=== PATIENT | female | born 1970 ===

== ENCOUNTER 2016-10-12 21:11 | Emergency (ER) | payer MEDICAID ==
[2016-10-12 21:34] VITALS: RESP 16
--- NOTE | 2016-10-12 22:06 | ED PDOC ---
HPI: Female Pain Time Seen by Provider: 10/12/16 21:35 Chief Complaint (Nursing): Female Genitourinary Chief Complaint (Provider): Vaginal bleeding History Per: Patient History/Exam Limitations: no limitations Onset/Duration Of Symptoms: Intermittent Episodes Current Symptoms Are (Timing): Still Present Additional Complaint(s): Carolina is a 46 y/o female who presents to the ED complaining of intermittent vaginal bleeding associated with lower abdominal cramping, mostly left side, since July 2016. Seen by PMD and had ultrasound done early July, suggestive of cystic structure within endometrial canal. Could not correlate with Beta-HCG. Otherwise no past medical history. Patient states pelvic exam done by PMD with no acute findings. PMD: Dr. Worley Abnormal Vaginal Bleeding: Yes Past Medical History Reviewed: Historical Data, Nursing Documentation, Vital Signs Vital Signs: Last Vital Signs Temp 98.1 F 10/12/16 21:32 Pulse 70 10/12/16 21:32 Resp 16 10/12/16 21:32 BP 148/84 10/12/16 21:32 Pulse Ox 100 10/12/16 21:32 - Medical History PMH: Gastritis, HTN - Family History Family History: States: Unknown Family Hx - Home Medications Home Medications: Ambulatory Orders Medication Instructions Recorded No Known Home Med 08/28/15 - Allergies Allergies/Adverse Reactions: Allergies Allergy/AdvReac Type Severity Reaction Status Date / Time No Known Allergies Allergy Verified 08/28/15 09:50 Review of Systems ROS Statement: Except As Marked, All Systems Reviewed And Found Negative Gastrointestinal: Positive for: Abdominal Pain (lower abdominal cramping, left- sided) Genitourinary Female: Positive for: Vaginal Bleeding Physical Exam - Reviewed Nursing Documentation Reviewed: Yes Vital Signs Reviewed: Yes - Physical Exam Appears: Positive for: Non-toxic, No Acute Distress Head Exam: Positive for: ATRAUMATIC, NORMAL INSPECTION, NORMOCEPHALIC Skin: Positive for: Normal Color, Warm, Dry Eye Exam: Positive for: EOMI, Normal appearance, PERRL Neck: Positive for: Normal, Painless ROM, Supple Cardiovascular/Chest: Positive for: Regular Rate, Rhythm. Negative for: Murmur Respiratory: Positive for: Normal Breath Sounds. Negative for: Respiratory Distress Gastrointestinal/Abdominal: Positive for: Soft, Tenderness (mild tenderness to the left side) Back: Positive for: Normal Inspection. Negative for: L CVA Tenderness, R CVA Tenderness Extremity: Positive for: Normal ROM. 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 Discussed with pt need for followup to determine if this is malignancy or other lesion. Pt understands and will f/u with her Adjunct Instructor. Provider Scribe Attestation: All medical record entries made by the Scribe were at my direction and personally dictated by me. I have reviewed the chart and agree that the record accurately reflects my personal performance of the history, physical exam, medical decision making, and the department course for this patient. I have also personally directed, reviewed, and agree with the discharge instructions and disposition. 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
[2016-10-12 22:10] LABS: BASO % 0.3 % (0.0-2.0); EOS # 0.1 K/uL (0.0-0.7); EOS % 1.4 % (0.0-4.0); HEMATOCRIT 32.6 % (34.0-47.0); LYMPH # 2.3 K/uL (1.0-4.3); LYMPH % 34.2 % (20.0-40.0); MEAN CELL VOLUME 74.5 fl (81.0-99.0); MEAN CORPUSCULAR HEMOGLOBIN 24.2 pg (27.0-31.0); MEAN CORPUSCULAR HGB CONC 32.4 g/dL (33.0-37.0); MEAN PLATELET VOLUME 7.1 fl (7.2-11.7); MONO # 0.6 K/uL (0.0-0.8); MONO % 8.2 % (0.0-10.0); NEUT # 3.8 K/uL (1.8-7.0); NEUT % 55.9 % (50.0-75.0); NRBC % 0.1 % (0.0-0.0); RED CELL DISTRIBUTION WIDTH 21.5 % (11.5-14.5); WHITE BLOOD COUNT 6.8 K/uL (4.8-10.8)
[2016-10-12 22:21] LABS: ALB/GLOB RATIO 1.3 (1.0-2.1); ALKALINE PHOSPHATASE 45 U/L (38-126); ALT/SGPT 34 U/L (9-52); AST/SGOT 27 U/L (14-36); BILIRUBIN,TOTAL 1.2 mg/dl (0.2-1.3); BLOOD UREA NITROGEN 15 mg/dl (7-17); CALCIUM 8.9 mg/dL (8.4-10.2); CARBON DIOXIDE 24 mmol/L (22-30); GFR AFRICAN-AMERICAN > 60; GLUCOSE,RANDOM 96 mg/dL (65-105); POTASSIUM 3.9 MMOL/L (3.6-5.0); SODIUM 137 mmol/l (132-148); TOTAL PROTEIN 7.2 G/DL (6.3-8.2)
[2016-10-12 22:23] LABS: CHLORIDE 102 mmol/L (98-107)
[2016-10-13] VITALS: BP 125/80; PULSE 75; TEMP 97.9; O2SAT 99
--- NOTE | 2016-10-13 00:10 | US ---
EXAM: US Pelvis, Transvaginal EXAM DATE/TIME: 10/12/2016 10:10 PM CLINICAL HISTORY: 46 years old, female; Pain; Pelvic pain; Additional info: Llq pain TECHNIQUE: Real-time transvaginal pelvic ultrasound (complete) with image documentation. Transvaginal imaging was used for better evaluation of the endometrium and adnexa. COMPARISON: No relevant prior studies available. FINDINGS: The uterus measures 9 x 5 x 6 cm. The endometrium measures 9 mm. Along the posterior aspect of the endometrial canal is a complex cystic structure similar to prior measuring 1.7 x 1.2 x 0.9 cm. As discussed in prior report, possibilities would include atypical subserosal fibroid, endometrial polyp, products of conception. Correlation with beta-hCG and followup is recommended. The right ovary is normal. The left ovary is normal. Color flow and doppler vascular waveforms were demonstrated to both ovaries. There is no significant free fluid. IMPRESSION: Stable complex cystic structure along the posterior aspect of the endometrial canal as discussed above.
== END 2016-10-13 | disposition home or self-care (01) ==
LOC: H.ER 21:11
DX: N85.8 Other specified noninflammatory disorders of uterus (principal); I10 Essential (primary) hypertension

== ENCOUNTER 2017-11-14 13:22 | Emergency (ER) | payer MEDICAID ==
[2017-11-14 13:35] VITALS: RESP 16; O2SAT 100
--- NOTE | 2017-11-14 14:21 | ED PDOC ---
HPI: Abdomen Time Seen by Provider: 11/14/17 13:47 Chief Complaint (Nursing): Back Pain Chief Complaint (Provider): Right Flank and RUQ Pain History Per: Patient History/Exam Limitations: no limitations Onset/Duration Of Symptoms: Hrs (this morning) Current Symptoms Are (Timing): Still Present Additional Complaint(s): 47 year old female presents to the ED for evaluation of right sided flank pain radiating to her RUQ associated with nausea since waking up this morning. She reports her symptoms slightly resolved after drinking eleazar tea, but then felt nauseous again shortly after. Additionally, she states she had dysuria at the beginning of the week, but it has since been improving on its own. Otherwise denies vomiting, chest pain, shortness of breath, palpitations, hemoptysis, hx of DVT or PE, hx of kidney stones, leg pain, postprandial pain, and fever. PMD: [facility] Past Medical History Reviewed: Historical Data, Nursing Documentation, Vital Signs Vital Signs: Last Vital Signs Temp 98.5 F 11/14/17 13:32 Pulse 86 11/14/17 13:32 Resp 16 11/14/17 13:32 BP 131/85 11/14/17 13:32 Pulse Ox 100 11/14/17 13:32 - Medical History PMH: Gastritis, HTN - Surgical History Other surgeries: Yes: right knee, right foot - Family History Family History: States: Unknown Family Hx - Social History Current smoker - smoking cessation education provided: No Alcohol: Social Drugs: Denies - Home Medications Home Medications: Ambulatory Orders Medication Instructions Recorded RX: Naproxen [Naprosyn] 500 mg PO BID PRN #10 tab 11/14/17 - Allergies Allergies/Adverse Reactions: Allergies Allergy/AdvReac Type Severity Reaction Status Date / Time No Known Allergies Allergy Verified 11/14/17 13:30 Review of Systems ROS Statement: Except As Marked, All Systems Reviewed And Found Negative Constitutional: Negative for: Fever Cardiovascular: Negative for: Chest Pain, Palpitations Respiratory: Negative for: Shortness of Breath, Hemoptysis Gastrointestinal: Positive for: Nausea, Abdominal Pain (RUQ). Negative for: Vomiting, Other (postprandial pain) Genitourinary Female: Positive for: Dysuria Musculoskeletal: Positive for: Other (right flank pain). Negative for: Leg Pain Physical Exam - Reviewed Nursing Documentation Reviewed: Yes Vital Signs Reviewed: Yes - Physical Exam Appears: Positive for: No Acute Distress Head Exam: Positive for: ATRAUMATIC, NORMOCEPHALIC Skin: Positive for: Normal Color. Negative for: Rash Eye Exam: Positive for: Normal appearance, EOMI, PERRL Cardiovascular/Chest: Positive for: Regular Rate, Rhythm Respiratory: Positive for: Normal Breath Sounds. Negative for: Accessory Muscle Use, Respiratory Distress Gastrointestinal/Abdominal: Positive for: Normal Exam, Soft. Negative for: Tenderness, Other (Troy's sign) Back: Positive for: Normal Inspection. Negative for: L CVA Tenderness, R CVA Tenderness Neurologic/Psych: Positive for: Alert, Oriented (x3) - Laboratory Results Result Diagrams: 11/14/17 14:12 11/14/17 14:12 - ECG O2 Sat by Pulse Oximetry: 100 (RA) Pulse Ox Interpretation: Normal - Progress Re-evaluation Time: 15:58 (Reports complete relief of pain. RUQ US: negative. Informed of results and advised to f/u with [facility] for further evaluation but is to return to ED immediately if symptoms worsen. ) Condition: Re-examined, Improved Medical Decision Making Medical Decision Making: Time: 1357 Initial Impression: right flank / right upper quadrant pain Initial Plan: --CMP --Lipase --U-preg --U-dip --CBC with differential --Zofran 4mg IVP --Urinalysis --US gallbladder and pancreas Scribe Attestation: Documented by Deepti Jain, acting as a scribe for Brandyn Cuellar PA-C Provider Scribe Attestation: All medical record entries made by the Scribe were at my direction and personally dictated by me. I have reviewed the chart and agree that the record accurately reflects my personal performance of the history, physical exam, medical decision making, and the department course for this patient. I have also personally directed, reviewed, and agree with the discharge instructions and disposition. Disposition - Clinical Impression Clinical Impression: Flank pain - Patient ED Disposition Is Patient to be Admitted: No - Disposition Referrals: Koki Rae MD [Staff Provider] - Disposition: Routine/Home Disposition Time: 16:00 Condition: IMPROVED Additional Instructions: EARL CHAPMAN, thank you for letting us take care of you today. Your provider was Jennifer Abbasi MD and you were treated for RT SIDE PAIN. The emergency medical care you received today was directed at your acute symptoms. If you were prescribed any medication, please fill it and take as directed. It may take several days for your symptoms to resolve. Return to the Emergency Department if your symptoms worsen, do not improve, or if you have any other problems. Please contact your doctor or call one of the physicians/clinics you have been referred to that are listed on the Patient Visit Information form that is included in your discharge packet. Bring any paperwork you were given at discharge with you along with any medications you are taking to your follow up visit. Our treatment cannot replace ongoing medical care by a primary care provider outside of the emergency department. Thank you for allowing the [facility] team to be part of your care today. If you had an X-Ray or CT scan: A Radiologist will review the ED reading if any change in treatment is needed we will contact you. If you had a blood, urine, or wound culture: It will take several days for the results, if any change in treatment is needed we will contact you. If you had an STI test: It will take 48 hours for the results. Please call after 1 week if you have not heard back. Prescriptions: RX: Naproxen [Naprosyn] 500 mg PO BID PRN #10 tab PRN Reason: Pain Instructions: Flank Pain (DC) Forms: [employer] (Amharic)
[2017-11-14 14:23] LABS: BASO % 0.6 % (0.0-2.0); EOS % 0.7 % (0.0-4.0); HEMOGLOBIN 13.4 g/dL (12.0-16.0); LYMPH # 2.3 K/uL (1.0-4.3); LYMPH % 33.8 % (20.0-40.0); MEAN CELL VOLUME 85.9 fl (81.0-99.0); MEAN CORPUSCULAR HGB CONC 34.9 g/dL (33.0-37.0); MEAN PLATELET VOLUME 7.6 fl (7.2-11.7); MONO # 0.4 K/uL (0.0-0.8); MONO % 6.4 % (0.0-10.0); NEUT # 3.9 K/uL (1.8-7.0); NEUT % 58.5 % (50.0-75.0); NRBC % 0.2 % (0.0-0.0); RBC 4.47 Mil/uL (3.80-5.20); RED CELL DISTRIBUTION WIDTH 14.1 % (11.5-14.5); WHITE BLOOD COUNT 6.7 K/uL (4.8-10.8)
[2017-11-14 14:31] LABS: SQUAMOUS EPITHIAL 1 /hpf (0-5); URINE BACTERIA RARE (<OCC); URINE BILIRUBIN NEGATIVE (NEGATIVE); URINE BLOOD NEGATIVE (NEGATIVE); URINE CLARITY CLEAR (Clear); URINE COLOR YELLOW (YELLOW); URINE GLUCOSE (UA) NEG (Normal); URINE LEUKOCYTE ESTERASE NEG Leu/uL (Negative); URINE PROTEIN NEGATIVE (NEGATIVE); URINE UROBILINOGEN 0.2-1.0 mg/dL (0.2-1.0)
[2017-11-14 14:37] LABS: ALB/GLOB RATIO 1.1 (1.0-2.1); ALBUMIN 4.1 g/dL (3.5-5.0); ALT/SGPT 20 U/L (9-52); AST/SGOT 28 U/L (14-36); BLOOD UREA NITROGEN 21 mg/dl (7-17); GFR NON-AFRICAN AMERICAN > 60; LIPASE 182 U/L (23-300)
--- NOTE | 2017-11-14 15:28 | US ---
Date of service: 11/14/2017 HISTORY: RUQ/R flank pain COMPARISON: None. TECHNIQUE: Sonographic evaluation of the right upper quadrant of the abdomen. FINDINGS: LIVER: Measures 11.5 cm in length. Normal echogenicity of the liver parenchyma. No mass. No intrahepatic bile duct dilatation. GALLBLADDER: Unremarkable. No gallstones. COMMON BILE DUCT: Measures 3 mm. No stones. No dilatation. PANCREAS: Unremarkable as visualized. No mass. No ductal dilatation. RIGHT KIDNEY: Measures 10.1 x 5.1 x 4.1 cm in length. Normal echogenicity. No calculus, mass, or hydronephrosis. AORTA: No aneurysmal dilatation. IVC: Unremarkable. OTHER FINDINGS: None . IMPRESSION: Unremarkable right upper quadrant ultrasound.
[2017-11-14 16:09] VITALS: BP 131/73; PULSE 61; TEMP 99.1
== END 2017-11-14 16:08 | disposition home or self-care (01) ==
LOC: H.ER 13:22
DX: R10.11 Right upper quadrant pain (principal); R11.0 Nausea
CPT/HCPCS: 76705; 80053; 81003; 81025; 83690; 85025; 96374; 96375; 99284; J1885; J2405